=== PATIENT | male | born 1980 | race Caucasian/White ===

== ENCOUNTER 2017-07-26 16:25 | Emergency (ER) | payer SELFPAY ==
[2017-07-26] MEDS ORDERED: HYDROCODONE/ACETAMINOPHEN 5-325 MG 6 TAB/DSPK PO PRN (18:50)
--- NOTE | 2017-07-26 18:56 | ER Document Report ---
ED Extremity Problem, Lower - General Chief Complaint: Foot Pain Stated Complaint: LEFT FOOT PAIN Time Seen by Provider: 07/26/17 18:05 Mode of Arrival: Ambulatory Information source: Patient Notes: 36-year-old male presented to ED for complaint of pain to the left foot and ankle. He states he has multiple screws into his left foot and ankle from a previous fracture. He states he broke multiple bones in the foot and ankle. He states he has had pain in this area since he was about 8 or 9 when he broke his ankle. He he states she has been diagnosed with arthritis in this foot and ankle. States pain increased last night after moving boxes. TRAVEL OUTSIDE OF THE [place] IN LAST 30 DAYS: No - HPI Location: Ankle - Left, Foot - Left Occurred: Other - chronic Onset/Duration: Intermittent Quality of pain: Achy, Sharp, Throbbing Severity: Severe Pain Level: 5 Context: Other - Chronic pain from previous fracture and surgery Recent injury: No Associated symptoms: Painful ambulation Exacerbated by: Movement, Walking Relieved by: Nothing - Related Data Allergies/Adverse Reactions: No Known Allergies Allergy (Verified 07/26/17 16:39) Past Medical History - General Information source: Patient - Social History Smoking Status: Current Every Day Smoker Cigarette use (# per day): Yes - Half pack per day Chew tobacco use (# tins/day): No Smoking Education Provided: Yes - Less than 2 minutes Frequency of alcohol use: None Drug Abuse: None Occupation: Construction Lives with: Parents Family History: Arthritis, CAD, COPD, CVA, DM, Hyperlipidemia, Hypertension. denies: Malignancy, Thyroid Disfunction Patient has suicidal ideation: No Patient has homicidal ideation: No - Past Medical History Cardiac Medical History: Reports: None Pulmonary Medical History: Reports: None EENT Medical History: Reports: None Neurological Medical History: Reports: None Endocrine Medical History: Reports: None Renal/ Medical History: Reports: None Malignancy Medical History: Reports None GI Medical History: Reports: None Musculoskeltal Medical History: Reports Hx Arthritis, Reports Hx Musculoskeletal Deformity, Reports Hx Musculoskeletal Trauma Skin Medical History: Reports None Psychiatric Medical History: Reports: Hx Anxiety Traumatic Medical History: Reports: Hx Fractures Infectious Medical History: Reports: None Past Surgical History: Reports: Hx Orthopedic Surgery - left foot - Immunizations Immunizations up to date: Yes Review of Systems - Review of Systems Constitutional: No symptoms reported EENT: No symptoms reported Cardiovascular: No symptoms reported Respiratory: No symptoms reported Gastrointestinal: No symptoms reported Genitourinary: No symptoms reported Male Genitourinary: No symptoms reported Musculoskeletal: No symptoms reported Skin: No symptoms reported Hematologic/Lymphatic: No symptoms reported Neurological/Psychological: No symptoms reported Physical Exam - Vital signs Vitals: Temp Pulse Resp BP Pulse Ox 98.0 F 91 16 109/62 98 07/26/17 16:39 07/26/17 16:39 07/26/17 16:39 07/26/17 16:39 07/26/17 16:39 Interpretation: Normal - General General appearance: Appears well, Alert - HEENT Head: Normocephalic, Atraumatic Eyes: Normal Pupils: PERRL - Respiratory Respiratory status: No respiratory distress Chest status: Nontender Breath sounds: Normal Chest palpation: Normal - Cardiovascular Rhythm: Regular Heart sounds: Normal auscultation Murmur: No - Abdominal Inspection: Normal Distension: No distension Bowel sounds: Normal Tenderness: Nontender Organomegaly: No organomegaly - Back Back: Normal, Nontender - Extremities General upper extremity: Normal inspection, Nontender, Normal color, Normal ROM , Normal temperature General lower extremity: Normal color, Normal temperature, Normal weight bearing. No: Harjit's sign Ankle: Tender, Limited ROM. No: Abrasion, Deformity, Ecchymosis, Edema, Instability, Laceration, Positive Hummel's test, Unable to bear weight - Due to pain Foot: Tender, Ecchymosis, Edema, Metatarsal compress. pain, No evidence of FB. No: Abrasion, Deformity, Nail injury, Navicular tenderness, Puncture wound, Tender 5th metatarsal, Unable to bear weight - Neurological Neuro grossly intact: Yes Cognition: Normal Orientation: AAOx4 [place] Coma Scale Eye Opening: Spontaneous [place] Coma Scale Verbal: Oriented [place] Coma Scale Motor: Obeys Commands [place] Coma Scale Total: 15 Speech: Normal Motor strength normal: LUE, RUE, LLE, RLE Sensory: Normal - Psychological Associated symptoms: Normal affect, Normal mood - Skin Skin Temperature: Warm Skin Moisture: Dry Skin Color: Normal Course - Re-evaluation Re-evalutation: 07/26/17 20:37 X-ray showed no acute changes. Patient does have a history of previous surgeries with hardware to the foot and ankle. Patient was given instructions to elevate ice follow-up with orthopedics and given a [place] dispense pack for pain. Patient given instructions concerning chronic pain and the need to follow -up with a primary doctor to control his pain. - Vital Signs Vital signs: Temp Pulse Resp BP Pulse Ox 98.1 F 87 16 107/60 99 07/26/17 19:58 07/26/17 19:58 07/26/17 19:58 07/26/17 19:58 07/26/17 19:58 - Diagnostic Test Radiology reviewed: Image reviewed, Reports reviewed Discharge - Discharge Clinical Impression: Chronic pain in left foot, Chronic pain of left ankle Condition: Stable Disposition: HOME, SELF-CARE Additional Instructions: Chronic Pain Control Stress, inactivity, and depression make pain more severe regardless of the cause of the pain. Stress and poor physical condition can cause pain such as headaches and backache. Relaxation: Rest in a quiet place with your eyes closed for 20 minutes twice daily. Concentrate on a pleasant image, or simply "feel" your breathing. Clear your mind. Stress management: Deal with your "stressors." Either take action, or eliminate the stressor from your life. Don't let things hang over you. Accept those things you can't change. Nutrition: Eat small, balanced meals -- don't skip, don't overeat. Meals should be high-carbohydrate, low-sugar, low-fat. Exercise: Exercise helps painful conditions and eases stress. Get 30 minutes of moderate exercise, five days a week. Do an activity that does not flare your pain. Precautions: Pain which continues to disrupt daily activities, or which changes in nature, requires a medical evaluation. Pain Clinic referral is available. We do not manage chronic pain in the Emergency Department. We will try to appropriately help you through an acute flare of your chronic painful condition , but for on-going chronic pain that does not improve, you will need to see your private doctor or [facility]. We do not provide repeated medication management of chronic painful conditions. If you wish, we can provide the name of local pain management physicians. We do not normally treat chronic pain with narcotics. As you have had previous surgery to this foot and do have severe arthritis I will give you one dispense pack of hydrocodone for your pain after that you need to follow-up with orthopedics or chronic pain management for your pain management. ICE & ELEVATION: Apply ice packs frequently against the painful area. Many different schedules are recommended, such as "20 minutes on, 20 minutes off" or "one hour ice, two hours rest." If you need to work, you may need to go longer between ice treatments. You should plan to have the area ice packed AT LEAST one- fourth of the time. The ice should be applied over the wrap, tape, or splint, or over a layer of cloth -- not directly against the skin. Some ice bags have a built-in cloth and can be put directly on the skin. Your injured part should be elevated as much as possible over the next 48 hours. Try to keep the injury above the level of the heart. Avoid use of the injured area. Elevation and rest will decrease the swelling. USE OF [id number] IBUPROFEN: Ibuprofen (Advil, Nuprin, Medipren, Motrin IB) is a medication for fever and pain control. In addition, it has anti- inflammatory effects which may be beneficial, especially in the treatment of injuries. It's best to take ibuprofen with food. Persons with ulcer disease or allergy to aspirin should notify their physician of this before taking ibuprofen. Ibuprofen can be given every four to six hours, for a total of four doses daily. Age Pain or fever dose Antiinflammatory dose 6-8 yr 200 mg (1 tab) 200 mg (1 tab) 9-11 yr 200 mg (1 tab) 200-400 mg (1-2 tab) 11-14 yr 200-400 mg (1-2 tab) 400 mg (2 tab) 15-adult 400 mg (2 tab) 600 mg (3 tab) Try Aspercreme to the foot to help with reduce the pain. You also need to follow-up with orthopedic doctor as soon as possible to see if there is anything they can do to reduce the pain from your previous surgery with the hardware in your foot and ankle. I have given you the name and number of an orthopedic doctor locally for you to follow-up with. FOLLOW-UP CARE: If you have been referred to a physician for follow-up care, call the physician s office for an appointment as you were instructed or within the next two days. If you experience worsening or a significant change in your symptoms, notify the physician immediately or return to the Emergency Department at any time for re-evaluation.
--- NOTE | 2017-07-26 19:05 | RADIOLOGY REPORT (SQ) ---
EXAM DESCRIPTION: FOOT LEFT COMPLETE COMPLETED DATE/TIME: 07/26/2017 6:38 pm REASON FOR STUDY: foot pain COMPARISON: None. NUMBER OF VIEWS: Three views. TECHNIQUE: AP, lateral and oblique radiographic images acquired of the left foot. LIMITATIONS: None. FINDINGS: MINERALIZATION: Normal. BONES: Postsurgical changes are present, consistent with hindfoot fusion. There is no evidence of santana rdware fracture, perihardware lucency or migration. No acute osseous injury is demonstrated. JOINTS: No effusions. SOFT TISSUES: No soft tissue swelling. No foreign body. OTHER: No other significant finding. IMPRESSION: Status post hindfoot fusion without evidence of hardware complication or acute injury. TECHNICAL DOCUMENTATION: JOB ID: [id number] [employer]- All Rights Reserved
[2017-07-26 20:03] VITALS: BP 107/60
== END 2017-07-26 19:59 | disposition home or self-care (01) ==
LOC: ER 16:25
DX: G89.29 Other chronic pain (principal); M79.672 Pain in left foot; M25.572 Pain in left ankle and joints of left foot; S92.902S Unspecified fracture of left foot, sequela; S82.892S Other fracture of left lower leg, sequela; X58.XXXS Exposure to other specified factors, sequela; R58 Hemorrhage, not elsewhere classified; Z98.1 Arthrodesis status; F17.210 Nicotine dependence, cigarettes, uncomplicated; Z71.6 Tobacco abuse counseling
CPT/HCPCS: 99283